=== PATIENT | female | born 1945 ===

== ENCOUNTER 2020-07-21 12:19 | Emergency (ER) | payer OTHER ==
[~2020-07-21] VITALS: Ht 154.9 cm; Wt 65.8 kg
[2020-07-21] MEDS ORDERED: LANTUS SOL100 UNIT/1 (13:02)
[2020-07-21] MEDS ORDERED: GLIMEPIRIDE2 MG (13:02)
[2020-07-21] MEDS ORDERED: LIPITOR20 MG (13:03)
[2020-07-21] MEDS ORDERED: DOLOGESIC 500-1 EACH (13:03)
[2020-07-21] MEDS ORDERED: FOLIXAPURE5000 UNIT (13:03)
[2020-07-21] MEDS ORDERED: AMLODIPINE-OLM1 EAC2 (13:04)
[2020-07-21] MEDS ORDERED: CLONAZEPAM1 GM (13:05)
[2020-07-21] MEDS ORDERED: LEVOXYL112 MCG (13:05)
== END 2020-07-21 15:36 | disposition home or self-care (01) ==
LOC: ER 12:19
DX: M13.88 Other specified arthritis, other site (principal); M54.89 Other dorsalgia; M25.552 Pain in left hip; M79.605 Pain in left leg; M79.604 Pain in right leg; E11.9 Type 2 diabetes mellitus without complications; Z79.4 Long term (current) use of insulin

== ENCOUNTER 2021-09-14 14:01 | Emergency (ER) | payer OTHER ==
[~2021-09-14] VITALS: Ht 160 cm; Wt 67.6 kg
[~2021-09-14 14:01] MED LIST: AMLODIPINE-OLM1 EAC2; CLONAZEPAM1 GM; DOLOGESIC 500-1 EACH; FOLIXAPURE5000 UNIT; GLIMEPIRIDE2 MG; LANTUS SOL100 UNIT/1; LEVOXYL112 MCG; LIPITOR20 MG
[2021-09-14] MEDS ORDERED: GLIMEPIRIDE2 M1 (14:46)
[2021-09-14] MEDS ORDERED: MOBIC7.5 MG (14:47)
[2021-09-14] MEDS ORDERED: SYNTHROID112 MCG (14:47)
[2021-09-14] MEDS ORDERED: PEPCID AC20 MG (14:48)
[2021-09-14] MEDS ORDERED: DOLOGESIC 500-1 EACH (14:48)
[2021-09-14] MEDS ORDERED: ACTOS30 MG (14:48)
[2021-09-14] MEDS ORDERED: CRESTOR10 MG (14:49)
[2021-09-14] MEDS ORDERED: MOTION SICKNESS25 M1 PO (19:21)
== END 2021-09-14 19:32 | disposition home or self-care (01) ==
LOC: ER 14:01
DX: R42 Dizziness and giddiness (principal); I10 Essential (primary) hypertension; E11.40 Type 2 diabetes mellitus with diabetic neuropathy, unspecified; Z79.899 Other long term (current) drug therapy; E03.9 Hypothyroidism, unspecified; Z20.822 Contact with and (suspected) exposure to COVID-19

== ENCOUNTER 2021-12-11 09:35 | Outpatient (CLI) | payer OTHER ==
[~2021-12-11 09:35] MED LIST changes: +ACTOS30 MG; +CRESTOR10 MG; +GLIMEPIRIDE2 M1; +MOBIC7.5 MG; +MOTION SICKNESS25 M1 PO; +PEPCID AC20 MG; +SYNTHROID112 MCG
== END 2021-12-11 09:47 | disposition home or self-care (01) ==
LOC: LAB 09:35
PROVIDERS: ATTEND Orthopaedic Surgery
DX: E11.65 Type 2 diabetes mellitus with hyperglycemia (principal); E78.2 Mixed hyperlipidemia; I10 Essential (primary) hypertension; E56.1 Deficiency of vitamin K